=== PATIENT | male | born 1990 | race Caucasian/White ===

== ENCOUNTER 2016-09-29 14:16 | Emergency (ER) | payer OTHER ==
[~2016-09-29] VITALS: Ht 172.7 cm; Wt 95.0 kg
[2016-09-29 14:18] VITALS: BP 167/106; PULSE 72; RESP 24; TEMP 98.5; O2SAT 98
[2016-09-29 14:42] VITALS: BP 135/92
--- NOTE | 2016-09-29 14:53 | PD ---
HPI Chief Complaint: Medical Clearance Time Seen by Provider: 15:00 Travel History International Travel<30 days: No Contact w/Intl Traveler<30days: No Traveled to known affect area: No History of Present Illness HPI 25-year-old male presents emergency department for evaluation of heroin withdrawal. Patient reports he has 6 year history of snorting heroin daily. He reports his last use was yesterday. He has had nausea,vomiting, restless legs since. He is requesting medication to help with detox. [facility] Past Medical History Medical History: Denies Significant Hx Respiratory: Yes (ASTHMA) Past Surgical History Surgical History: No Previous Surgery Social History Alcohol Use: Yes ("couple times a week") Tobacco Use: Yes (1.5 ppd) Substance Use: Yes (heroin last used 2 days ago (09/27/16)) Allergies-Medications (Allergen,Severity, Reaction): Coded Allergies: No Known Allergies (Unverified , 09/29/16) Reported Meds & Prescriptions Reported Meds & Active Scripts Active Clonidine (Clonidine HCl) 0.1 Mg Tab 0.1 Mg PO BID Zofran (Ondansetron HCl) 4 Mg Tab 4 Mg PO Q6HR PRN Review of Systems General / Constitutional: No: Fever Eyes: No: Visual changes HENT: No: Headaches Cardiovascular: No: Chest Pain or Discomfort Respiratory: No: Shortness of Breath Gastrointestinal: Positive: Nausea, Vomiting, Diarrhea Genitourinary: No: Dysuria Skin: No Rash Neurologic: No: Weakness Psychiatric: No: Depression Physical Exam Narrative GENERAL: alert well nourished male, appears moderately uncomfortable SKIN: Warm and dry. HEAD: Atraumatic. Normocephalic. EYES: Pupils equal and round. No scleral icterus. No injection or drainage. ENT: No nasal bleeding or discharge. Mucous membranes pink and moist. NECK: Trachea midline. No JVD. CARDIOVASCULAR: Regular rate and rhythm. RESPIRATORY: No accessory muscle use. Clear to auscultation. Breath sounds equal bilaterally. GASTROINTESTINAL: Abdomen soft, non-tender, nondistended. Hepatic and splenic margins not palpable. MUSCULOSKELETAL: Extremities without clubbing, cyanosis, or edema. No obvious deformities. NEUROLOGICAL: Awake and alert. No obvious cranial nerve deficits. Motor grossly within normal limits. Five out of 5 muscle strength in the arms and legs. Normal speech. PSYCHIATRIC: Appropriate mood and affect; insight and judgment normal. Data Data Last Documented VS Vital Signs Date Time Temp Pulse Resp B/P Pulse Ox O2 Delivery O2 Flow Rate FiO2 09/29/16 15:50 76 18 139/78 98 Room Air 09/29/16 14:18 98.5 Orders Clonidine (Catapres) (09/29/16 15:00) Ondansetron Odt (Zofran Odt) (09/29/16 15:00) MDM Medical Decision Making Medical Screen Exam Complete: Yes Emergency Medical Condition: Yes Differential Diagnosis heroin withdrawal and polysubstance abuse Narrative Course 25-year-old male presents emergency department for evaluation of heroin withdrawal. Patient reports he has 6 year history of snorting heroin daily. He reports his last use was yesterday. He has had nausea,vomiting, restless legs since. He is requesting medication to help with detox. Patient's physical exam is reassuring. His initial blood pressure was 167/106. Discussed treatment options and detox facilities in the area. He will be given a prescription for clonidine and Zofran and instructed to follow-up with [facility] for [facility]. Patient was administered his first dose of clonidine and Zofran and held for observation. His blood pressure was stable after the administration of clonidine. Patient reports mild symptom improvement after the clonidine. He is stable and ready for discharge. Patient verbalizes understanding and agrees to plan. Diagnosis Primary Impression: Heroin withdrawal Referrals: [facility] Additional Instructions: Take the clonidine as prescribed to help with opiate withdrawal. If you develop dizziness/lightheadedness stop taking the clonidine. Do not take the clonidine if you or using or going to use opiates or heroin. [facility]-up with [facility] every day until they have an open bed. Scripts Clonidine 0.1 Mg Tab0.1 Mg PO BID #10 TAB Ref 0 Prov:Maribell Harkins 09/29/16 Ondansetron (Zofran)4 Mg Tab4 Mg PO Q6HR PRN (NAUSEA OR VOMITING) #10 TAB Ref 0 Prov:Maribell Harkins 09/29/16 Disposition: 01 DISCHARGE HOME Condition: Stable Maribell Harkins Sep 29, 2016 14:53
[2016-09-29] MEDS ORDERED: ONDANSETRON ODT 4 MG TAB PO ONE (15:00)
[2016-09-29] MEDS ORDERED: cloNIDine HCL 0.1 MG TAB PO ONE (15:00)
[2016-09-29 15:50] VITALS: BP 139/78; PULSE 76; RESP 18; O2SAT 98
[2016-09-29] MEDS ORDERED: CLON0.1T PO (16:01)
[2016-09-29] MEDS ORDERED: ZOFR4TAB PO (16:01)
== END 2016-09-29 16:39 | disposition home or self-care (01) ==
LOC: NEPD 14:16
DX: F11.23 Opioid dependence with withdrawal (principal); R11.2 Nausea with vomiting, unspecified; G25.81 Restless legs syndrome; J45.909 Unspecified asthma, uncomplicated; F17.200 Nicotine dependence, unspecified, uncomplicated; Z79.899 Other long term (current) drug therapy
CPT/HCPCS: 99284